=== PATIENT | female | born 1985 | race Caucasian/White ===

== ENCOUNTER 2017-02-21 02:31 | Inpatient (IN) | payer OTHER ==
[2017-02-21] MEDS ORDERED: EPSOM SALT 454 GM TP PRN (02:39)
[2017-02-21] MEDS ORDERED: TERBUTALINE SULFATE 1 MG/ML VIAL IV PRN (02:39)
[2017-02-21] MEDS ORDERED: LR 1,000 ML IV PRN (02:39)
[2017-02-21] MEDS ORDERED: OLIVE OIL 118 ML BTL MISC PRN (02:39)
[2017-02-21] MEDS ORDERED: OXYTOCIN 20 UNIT in LR 1,000 ML IV PRN (02:39)
[2017-02-21] MEDS ORDERED: AMPICILLIN SODIUM 2 GM in NS 100 ML IV ONE (02:44)
[2017-02-21] MEDS ORDERED: PHENYLEPHRINE HCL 100 MCG/ML SYR ONE ×3 (02:45→09:55)
[2017-02-21] MEDS ORDERED: BUPIVACAINE 0.25% 30 ML SDV ONE (02:48)
[2017-02-21] MEDS ORDERED: fentaNYL 2MCG/ML/BUP 0.1% RTU 100 ML BAG EP ONE (02:48)
[2017-02-21] MEDS ORDERED: fentaNYL 100 MCG/2 ML INJ ONE ×2 (02:49→07:56)
[2017-02-21] MEDS ORDERED: AMMONIA AROMATIC 1 EACH AMP IH ONE (02:53)
--- NOTE | 2017-02-21 02:53 | OBPROG ---
Labor Progress Note Assessment/Plan: Assessment:cat 2 fhr labor since 0100 coping well requesting an epidural for pain relief gbs positive exam 8/100/0 bow intact call to physcian occupational therapy aide will be in for delivery patient is a Plan:begin antibiotics epidural for pain relief 02/21/17 02:51 Subjective/Intrapartum Course: 02/21/17 02:50 Doing well. Coping with the contractions. Requesting an epidural for pain relief. Iv fluids begun. Anesthesia called to assist patient with pain relief - SVE Dilation (cm): 8 Effacement (%): 100 Station: -1 Membranes: Intact - Contraction Pattern Assessment Current Contraction Pattern: Regular - FHR Assessment Walters FHR (bpm): 150 FHR Pattern Variability: Moderate FHR Category: 2 - Physical Exam General Appearance: WD/WN, alert, no apparent distress Respiratory: chest non-tender, lungs clear, normal breath sounds Cardiac/Chest: regular rate, rhythm Abdomen: normal bowel sounds Extremities: normal range of motion, Jessica's sign (negative bilataterally) DTR- Lower Extremities: Knee (R): 1+, Knee (L): 1+ (no clonus) Skin: normal color, warm/dry Neuro/Psych: no motor/sensory deficits, alert, normal mood/affect, oriented x 3 ICD10 Worksheet Patient Problems: Problems Problem Status Onset delivery delivered Acute Normal labor Acute
[2017-02-21] MEDS ORDERED: MISOPROSTOL 200 MCG TAB ONE (02:54)
[2017-02-21 02:58] LABS: % IMMATURE GRANULYOCYTES 1.1 % (0.0-1.1); ABSOLUTE IMMATURE GRANULOCYTES 0.18 10^3/uL (0.00-0.10); ADD DIFF? NO; ADD MORPH? NO; ADD SCAN? NO; ATYPICAL LYMPHOCYTE FLAG 10 (0-99); FRAGMENT RBC FLAG 0 (0-99); HEMATOCRIT 38.5 % (38.0-47.0); HEMOGLOBIN 13.4 g/dL (12.6-16.3); LEFT SHIFT FLG 10 (0-99); LIPEMIA HEMOLYSIS FLAG 90 (0-99); MEAN CELL HEMOGLOBIN CONCENTR. 34.8 g/dL (32.4-36.7); MEAN CELL VOLUME 89.1 fL (81.5-99.8); PLATELET CLUMPS FLAG 0 (0-99); PLATELET COUNT 266 10^3/uL (150-400); RED BLOOD CELL COUNT 4.32 10^6/uL (4.18-5.33); RED CELL DISTRIBUTION WIDTH 13.1 % (11.5-15.2)
[2017-02-21] MEDS ORDERED: PHENYLEPHRINE HCL 100 MCG/ML SYR IVP PRN ×2 (03:39→10:33)
[2017-02-21] MEDS ORDERED: ONDANSETRON 4 MG/2 ML VIAL IVP PRN ×2 (03:39→10:33)
[2017-02-21] MEDS ORDERED: NALOXONE HCL 0.4 MG/ML INJ IVP PRN ×2 (03:39→10:33)
--- NOTE | 2017-02-21 03:44 | PREANESOB ---
Obstetric Pre-Anesthesia Info - General Info Proposed Procedure: tolac : 2 Para: 1 DONTE: 02/22/17 Gestational Age: 39 week(s) and 6 day(s) - Info Status: Full Term Monitors: External FHR Pattern: Reassuring - Labor Status Cervical Dilation per last OB SVE: 8 Station per last OB SVE: -1 Indications for Labor Analgesia: Pain Control, Possible Section History: Repeat Indications for Current Section: Elective/Repeat (previous cs due to intol w pushing) Labor Epidural: Proposed Anesthesia ROS: mild hypothyroid Allergies/Adverse Reactions: Allergy/AdvReac Type Severity Reaction Status Date / Time No Known Allergies Allergy Unverified 01/30/14 09:26 Home Medications: Medication Instructions Recorded Vitamins 01/30/14 Hydrocodone/APAP 5/325 [[place] 1 - 2 tab PO Q4 PRN #30 tab 02/04/14 5/325 (*)] Ibuprofen [Motrin (*)] 600 mg PO Q6 PRN #30 tab 02/04/14 Visit Medications: Generic Name Dose Route Start Last Admin Trade Name Freq PRN Reason Stop Dose Admin Lactated Ringer's 1,000 mls @ 0 mls/hr 02/21/17 02:39 Lr IV 08/20/17 02:38 PRN PRN SEE PROTOCOL CONDITIONS Protocol Per Protocol Oxytocin 20 unit/ Lactated 1,002 mls @ 150 mls/hr 02/21/17 02:39 Ringer's IV PRN PRN Post- bleeding Ampicillin Sodium 1 gm/ Sodium 100 mls @ 200 mls/hr 02/21/17 06:45 Chloride IV 03/23/17 06:44 Q4H MEÑO Protocol Ibuprofen 600 mg 02/21/17 02:39 Motrin PO 08/20/17 02:38 Q6HRS PRN post , inflammation Magnesium Sulfate 454 gm 02/21/17 02:39 Epsom Salt TP 08/20/17 02:38 Q1H PRN perineal discomfort Fentress Oil 118 ml 02/21/17 02:39 Sweet Oil MISC 08/20/17 02:38 ONCE PRN perineal massage Terbutaline Sulfate 0.25 mg 02/21/17 02:39 Brethine IV 08/20/17 02:38 ONCE PRN Tachysystole Discontinued Medications Generic Name Dose Route Start Last Admin Trade Name Freq PRN Reason Stop Dose Admin Ammonia (Aromatic Spirit) Confirm 02/21/17 02:53 Ammonia Aromatic Administered 02/21/17 02:54 Dose 1 each IH .STK-MED ONE Bupivacaine HCl Confirm 02/21/17 02:48 Sensorcaine 0.25% Sdv Administered 02/21/17 02:49 Dose 30 ml .ROUTE .STK-MED ONE Fentanyl Confirm 02/21/17 02:49 Sublimaze Administered 02/21/17 02:50 Dose 100 mcg .ROUTE .STK-MED ONE Fentanyl/Bupivacaine HCl Confirm 02/21/17 02:48 Fentanyl/Bupivacaine/Ns 2 Mcg/Ml 0.1% (Premix Administered 02/21/17 02:49 Dose 100 ml EP .STK-MED ONE Ampicillin Sodium 2 gm/ Sodium 110 mls @ 220 mls/hr 02/21/17 02:44 Chloride IV 02/21/17 03:13 ONCE ONE Protocol Misoprostol Confirm 02/21/17 02:54 Cytotec Administered 02/21/17 02:55 Dose 800 mcg .ROUTE .STK-MED ONE Phenylephrine HCl Confirm 02/21/17 02:45 Neosynephrine Administered 02/21/17 02:46 Dose 1,000 mcg .ROUTE .STK-MED ONE Phenylephrine HCl Confirm 02/21/17 02:48 Neosynephrine Administered 02/21/17 02:49 Dose 1,000 mcg .ROUTE .STK-MED ONE - Anesthesia History Response to Local Anesthetics: Normal Anesthesia & Operative History: No Prior Problems (labor epid, cs, dental) Family Anesthesia History: Negative - Social History Substance Use/Abuse: Denies - Vital Signs Height/Weight (Nursing): Height 170.18 cm Weight 78.925 kg - Focused Exam Neck exam: FROM Mallampati Score: Class 2 Mouth exam: normal dental/mouth exam Pulmonary: no respiratory distress Cardiovascular: regular rate and rhythym Labs: 02/21/17 02:42 - Plan Consent Signed and on Chart: Yes Patient/Guardian Understands and Agrees to Plan: Yes Urgent/Emergent Case: Delonte nyasiasunita completed preop but documented later for safe timely pt care (see paper record for info [facility] would not allow)
--- NOTE | 2017-02-21 03:51 | GHP ---
[f rep st] HISTORY AND PHYSICAL DATE OF ADMISSION: 02/21/2017 The patient is a 31-year-old, 2, para 1, with an EDC of 02/22/2017, who comes in at 2:45 with complaints of regular contractions since 1 a.m. on 2016. The patient has been seen routinely through [facility] since 9 weeks and 5 days. Had an early ultrasound that confirmed an DONTE of 02/22/2017. The patient states feeling positive movement. Positive bloody show. Denies rupture of membranes. MEDICAL HISTORY: Positive HPV previously, history of varicella and shingles, positive cystitis with first , increased cholesterol in 2011, hypothyroidism. SURGICAL HISTORY: in 2013. Oral surgery for wisdom teeth at 15 years old. MEDICATIONS: The patient has a history of hypothyroid, is taking levothyroxine , vitamin with DHEA, and folic acid, is on 25 mcg of levothyroxine. ALLERGIES: NKDA, not allergic to any medications. SOCIAL HISTORY: Patient is . Another child at home. Had delivered a male in 01/2014, seven pounds 8 ounces at 40-6/7 weeks, 20 hours of labor, and C -section for intolerance of labor. At that time, was positive GBS. GYNECOLOGICAL HISTORY: History of OCP use. Condom use. A colpo in 2006. Negative Pap since. Infertility CCRM with this . IUI on 05/30/2016. AMH was decreased at 1.9 on 02/25/2016. SIGNIFICANT FAMILY HISTORY: Father of child with cardiac defect. echo was done, which was within normal limits with this . There is also a marginal cord insertion where growth was rechecked. PHYSICAL ASSESSMENT: GENERAL: Patient is awake, alert, oriented x3. LUNGS: Clear bilaterally. ABDOMEN: Bowel sounds are positive in all 4 quadrants. EXTREMITIES: DTRs are 1+ bilaterally. No clonus. Homans sign is negative bilaterally. On exam patient was 8, 100, -1, bag water is intact. The patient is GBS positive. Antibiotics were begun. The patient requested epidural for pain relief. Epidural anesthesia was requested to come for epidural placement. LABS: The patient is A positive, antibody negative. RPR is nonreactive. Rubella is immune. Hepatitis is negative. HIV is negative. Carrier screening in 2014 was negative. TSH on 06/30/2016 was 2.47, on 10/21/2016 was 2.44. Pap was within normal limits. Gonorrhea and chlamydia were negative. The patient declined any genetic screening. One hour GTT was within normal limits. GBS is positive. PLAN OF CARE: 1. GBS treatment. Ampicillin was begun. 2. Epidural at patient's request. 3. Call physician backup, Dr. Ingris Nazario, to come in and be present for delivery. 4. Expectant management of labor. /[id number]/MODL MTDD
[2017-02-21] MEDS ORDERED: LR 500 ML IV SCH (04:00)
[2017-02-21] MEDS ORDERED: fentaNYL 2MCG/ML/BUP 0.1% RTU 100 ML EP SCH (04:00)
--- NOTE | 2017-02-21 05:53 | OBPROG ---
Labor Progress Note Assessment/Plan: Assessment:cat 2 fhr epidural working well feeling pressure denies pain gbs positive exam /0 attempt to push minimal progress variables will labor down Plan:expectant management 02/21/17 02:51 02/21/17 05:51 Subjective/Intrapartum Course: 02/21/17 02:50 Doing well. Coping with the contractions. Requesting an epidural for pain relief. Iv fluids begun. Anesthesia called to assist patient with pain relief Objective: 02/21/17 02:42 Patient ABO/Rh A POSITIVE 02/21/17 02:42 - SVE Membranes: Intact - Contraction Pattern Assessment Current Contraction Pattern: Regular - FHR Assessment Walters FHR (bpm): 135 FHR Pattern Variability: Moderate FHR Category: 1 Oxytocin Orders Assessment - Pre-Induction/Augmentation Assessment Gestational Age: 39 week(s) and 6 day(s) ICD10 Worksheet Patient Problems: Problems Problem Status Onset delivery delivered Acute Normal labor Acute
[2017-02-21] MEDS: AMPICILLIN SODIUM 1 GM in NS 100 ML IV SCH ×2 (06:35→16:56)
--- NOTE | 2017-02-21 06:52 | OBPROG ---
Labor Progress Note Assessment/Plan: Assessment: 31 y/o @ 39 6/7 weeks with previous c/s in active labor Plan: s/p epidural, pt is comfortable FHTs - Cat II strip with intermittent late decels that are getting deeper Pt has labored down x 1 hour and started pushing again with late decels noted Suspect OP; 0 station Discussed proceeding with a c/s secondary to intolerance to labor Pt wants to wait and see if head will come down further so she can start pushing again Will position patient with a peanut Continue to closely monitor strip GBS+, s/p abx x 2 02/21/17 07:01 Subjective/Intrapartum Course: 02/21/17 02:50 Doing well. Coping with the contractions. Requesting an epidural for pain relief. Iv fluids begun. Anesthesia called to assist patient with pain relief 02/21/17 06:59 Pt is comfortable, s/p epidural Objective: 02/21/17 02:42 Patient ABO/Rh A POSITIVE 02/21/17 02:42 - SVE Dilation (cm): 10 Effacement (%): 100 Station: 0, +1 Membranes: AROM (forebag - clear), SROM Amniotic Fluid Color: Clear - Contraction Pattern Assessment Current Contraction Pattern: Regular - FHR Assessment Walters FHR (bpm): 140 FHR Pattern Variability: Moderate FHR Category: 2 (Late decels noted with kel to 90 bpm x 20 sec) Oxytocin Orders Assessment - Pre-Induction/Augmentation Assessment Gestational Age: 39 week(s) and 6 day(s) ICD10 Worksheet Patient Problems: Problems Problem Status Onset delivery delivered Acute Normal labor Acute
[2017-02-21] MEDS ORDERED: OXYTOCIN 10 UNIT/ML VIAL ONE (07:04)
[2017-02-21] MEDS ORDERED: LIDOCAINE 1% 300 MG/30 ML SDV ONE (07:04)
[2017-02-21] MEDS ORDERED: LIDO/EPI 2% **for epidural** 20 ML SDV ONE (07:56)
[2017-02-21] MEDS ORDERED: CEFAZOLIN 2 GM/DEXTROSE/100 ML BAG IV ONE (09:02)
--- NOTE | 2017-02-21 09:08 | OBPROG ---
Labor Progress Note Assessment/Plan: Assessment: Plan: Subjective/Intrapartum Course: 02/21/17 02:50 Doing well. Coping with the contractions. Requesting an epidural for pain relief. Iv fluids begun. Anesthesia called to assist patient with pain relief 02/21/17 06:59 Pt is comfortable, s/p epidural 02/21/17 07:59 patient is comfortable. began pushing then severe variable decels. patient was making good progress so terbutaline given. heart tones improved. we began pushing again. head down to +2 station. increased late decels and decrease variability then more severe variables. discussed options of proceeding to OR and attempting vaccuum. risks and benefits discussed. attempted vaccum - 2 pulls with no popoffs. no further descent of head. will proceed with rltcs for intolerance of labor and arrest of descent. patient consented. Objective: 02/21/17 02:42 Patient ABO/Rh A POSITIVE 02/21/17 02:42 - SVE Dilation (cm): 10 Effacement (%): 100 Station: +1 Membranes: AROM (forebag - clear), SROM Amniotic Fluid Color: Clear - Contraction Pattern Assessment Current Contraction Pattern: Regular - FHR Assessment Walters FHR Pattern Variability: Moderate FHR Category: 2 Oxytocin Orders Assessment - Pre-Induction/Augmentation Assessment Gestational Age: 39 week(s) and 6 day(s) ICD10 Worksheet Patient Problems: Problems Problem Status Onset delivery delivered Acute Normal labor Acute
[2017-02-21] MEDS ORDERED: OXYTOCIN 100 UNITS/10 ML VIAL ONE (09:24)
[2017-02-21] MEDS ORDERED: DEXAMETHASONE 4 MG/ML VIAL ONE (09:24)
[2017-02-21] MEDS ORDERED: ONDANSETRON 4 MG/2 ML VIAL ONE (09:24)
[2017-02-21] MEDS ORDERED: morphINE PF 5 MG/10 ML INJ ONE (09:37)
[2017-02-21] MEDS ORDERED: MEPERIDINE 25 MG/ML SYR ONE (09:53)
[2017-02-21 10:06] LABS: PH VENOUS CORD BLOOD 7.28 (7.20-7.42)
[2017-02-21 10:08] LABS: CORD BLOOD PCO2 42.7 mmHg (37-60); PH ARTERIAL CORD BLOOD 7.29 (7.10-7.37)
[2017-02-21 10:31] LABS: BASE EXCESS CORD -6.3 mEq/L (-13.6--3.2)
[2017-02-21] MEDS ORDERED: METOCLOPRAMIDE 10 MG/2 ML VIAL IVP PRN (10:33)
[2017-02-21] MEDS ORDERED: fentaNYL 100 MCG/2 ML INJ IVP PRN (10:33)
--- NOTE | 2017-02-21 10:41 | POSTANESTH ---
Post Anesthetic Evaluation Cardiovascular Status: Normal, Stable Respiratory Status: Normal, Stable, Similar to Pre-op Cond. Level of Consciousness/Mental Status: Can Participate in Eval, Mildly Sleepy, Arousable (Epidural dosed for C Section, to OR, BP treated, comfortable for surgery, toPACU, no nausea, some post op shoulder pain.) Pain Control: Adequate, Prn Tx Ordered Nausea/Vomiting Control: Adequate, Prn Tx Ordered Complications Possibly Related to Anesthesia: None Noted
[2017-02-21] MEDS ORDERED: SIMETHICONE 80 MG TAB CHEW PO PRN (10:51)
[2017-02-21] MEDS ORDERED: POLYETHYLENE GLYCOL 3350 17 GM PKT PO PRN (10:51)
[2017-02-21] MEDS ORDERED: LACTULOSE 20 GM/30 ML UDCUP PO PRN (10:51)
[2017-02-21] MEDS ORDERED: BISACODYL 10 MG SUPP PR PRN (10:51)
[2017-02-21] MEDS ORDERED: MAGNESIUM HYDROXIDE 30 ML UDCUP PO PRN (10:51)
--- NOTE | 2017-02-21 11:15 | OBDEL ---
Info Type: Repeat Presentation at Delivery: Vertex L&D Analgesia/Anesthesia Type: Epidural GBS+: No Intrapartum Medications: Generic Name Dose Route Start Last Admin Trade Name Jonny PRN Reason Stop Dose Admin Ampicillin Sodium 1 gm/ Sodium 100 mls @ 200 mls/hr 02/21/17 06:45 02/21/17 06:35 Chloride IV 03/23/17 06:44 100 mls Q4H MEÑO Administration Protocol Discontinued Medications Generic Name Dose Route Start Last Admin Trade Name Jonny PRN Reason Stop Dose Admin Ampicillin Sodium 2 gm/ Sodium 110 mls @ 220 mls/hr 02/21/17 02:44 02/21/17 02:51 Chloride IV 02/21/17 03:13 110 mls ONCE ONE Administration Protocol terbutaline x 2 - Hospital Course Intrapartum: 02/21/17 02:50 Doing well. Coping with the contractions. Requesting an epidural for pain relief. Iv fluids begun. Anesthesia called to assist patient with pain relief 02/21/17 06:59 Pt is comfortable, s/p epidural 02/21/17 07:59 patient is comfortable. began pushing then severe variable decels. patient was making good progress so terbutaline given. heart tones improved. we began pushing again. head down to +2 station. increased late decels and decrease variability then more severe variables. discussed options of proceeding to OR and attempting vaccuum. risks and benefits discussed. attempted vaccum - 2 pulls with no popoffs. no further descent of head. will proceed with rltcs for intolerance of labor and arrest of descent. patient consented. Indications for Delivery: Spontaneous Labor Vaginal Delivery - Labor and Delivery Onset of Contractions Date: 02/21/17 Onset of Contractions Time: 01:00 Amniotic Fluid Color: Clear Cord Gases: Cord Gases Cord Blood PCO2 42.7 mmHg (37-60) 02/21/17 09:40 Cord Base Excess -6.3 mEq/L (-13.6--3.2) 02/21/17 09:40 Cord ABG pH 7.29 (7.10-7.37) 02/21/17 09:40 Cord VBG pH 7.28 (7.20-7.42) 02/21/17 09:40 Operative Report - Delivery Pre-op Diagnoses: IUP at 40 weeks, arrest of descent, failed vaccuum, intolerance of labor Post-op Diagnoses: same as preop plus occiput posterior History of Prior Section: Yes Number of Prior Sections: 1 Nulliparous Prior to Delivery: No Indications for Prior Section: Non-reas. Status Indications for Current Section: Elective/Repeat (previous cs due to intol w pushing) Procedure: Unscheduled, Low Transverse Surgeon: Annette Toledo Dog Races Manager: Celia Bello Anesthesiologist: Rinku Saleh EBL: 800 Cord Gases: Cord Gases Cord Blood PCO2 42.7 mmHg (37-60) 02/21/17 09:40 Cord Base Excess -6.3 mEq/L (-13.6--3.2) 02/21/17 09:40 Cord ABG pH 7.29 (7.10-7.37) 02/21/17 09:40 Cord VBG pH 7.28 (7.20-7.42) 02/21/17 09:40 [place]arr[place] Data Walters Delivery Date: 02/21/17 Delivery Time: 09:36 DONTE: 02/21/17 Gestational Age: 40 week(s) and 0 day(s) Sex of : Male Score (1 Min): 8 Score (5 Min): 9 ICD10 Worksheet Patient Problems: Problems Problem Status Onset delivery delivered Acute Normal labor Acute
[2017-02-21] MEDS: KETOROLAC 30 MG/1 ML SDV IVP SCH ×2 (13:26→19:30)
[2017-02-21] MEDS ORDERED: ACETAMINOPHEN 500 MG TAB PO ONE (15:45)
--- NOTE | 2017-02-21 18:16 | OBPP ---
Progress Note Assessment/Plan: Assessment: pod# 0 s/p RLTCS after failed vacuum failed breast feeding slightly elevated temperature Plan: routine post care watch temperature - abx if greater than 100.5 02/21/17 18:06 Subjective/ Course: 02/21/17 18:07 patient is doing very well. pain is well controlled. breast feeding is going well. denies headache and changes in vision. ambulating in room. passing gas. tolerating diet. has had two elevated temps (100.7 then 100.3 and 99.7 ) will monitor temp. discussed delivery. questions answered. Objective: 02/21/17 02:42 Patient ABO/Rh A POSITIVE 02/21/17 02:42 Temp Pulse Resp BP Pulse Ox 37.6 C 92 16 111/69 97 02/21/17 17:30 02/21/17 15:21 02/21/17 15:21 02/21/17 15:21 02/21/17 17:30 Physical Exam - Physical Exam Neck: non-tender, full range of motion, supple Respiratory: chest non-tender, lungs clear, normal breath sounds Cardiac/Chest: normal peripheral pulses, regular rate, rhythm Abdomen: normal bowel sounds, non-tender Extremities: normal range of motion, non-tender, normal inspection, normal capillary refill Skin: normal color, warm/dry Neuro/Psych: no motor/sensory deficits, alert, normal mood/affect, oriented x 3
[2017-02-21] MEDS: SENNOSIDES/DOCUSATE SODIUM TAB PO SCH (19:56)
--- NOTE | 2017-02-21 20:51 | GOP ---
[f rep st] OPERATIVE REPORT DATE OF OPERATION: 02/21/2017 SURGEON: Annette Toledo DO SUPREME COURT JUSTICE: AJITH Cevallos. ANESTHESIA: Epidural. ANESTHESIOLOGIST: Rinku Saleh MD. PREOPERATIVE DIAGNOSIS: 1. Intrauterine at 40 weeks' gestation. 2. History of previous low transverse section. 3. Failed vacuum assisted vaginal delivery. 4. Arrest of descent. 5. intolerance of labor. POSTOPERATIVE DIAGNOSIS: 1. Intrauterine at 40 weeks' gestation. 2. History of previous low transverse section. 3. Failed vacuum assisted vaginal delivery. 4. Arrest of descent. 5. intolerance of labor. 6. Occiput posterior. PROCEDURE PERFORMED: Repeat low transverse section. FINDINGS: Viable male in the occiput posterior presentation, delivered at 9:36 a.m. Apgars w ere 8 and 9. Cord blood ABG 7.29. Cord blood venous is 7.28. ESTIMATED BLOOD LOSS: 800 cc. INDICATIONS: Patient is a 31-year-old, 2, para 1, with an estimated due date of 02/22/2017, who presented to Labor and Delivery with regular contractions since 1:00 a.m. She arrived to Labor a nd Delivery and was found to be 8 cm dilated, 100% effaced and -1 station. Patient is GBS positive. She received antibiotics. She received an epidural which provided adequate pain relief. The patien t had intermittent periods of decelerations while in labor, but overall status was reassuring. She progressed to complete dilation and overall status was reassuring, but there were some lat e decelerations. She was allowed to labor down. We did begin pushing and she had some severe variab le decelerations. She was given terbutaline, which caused the baby's status to become reassuri ng again. But we then began pushing again, she was able to bring the baby down to +2 station and the baby began having decelerations again. We had a long discussion about management options of attempt ing a vacuum assisted vaginal delivery versus proceeding with a repeat section. The patient was agreeable to trying the vacuum assisted vaginal delivery. With 2 contractions and 0 pop offs, t he baby's head did get good application of the vacuum. The baby's head did not descend further and d ecelerations were worsening, so decision was made to proceed with a repeat low transverse se ction for intolerance of labor, arrest of descent. Risks and benefits extensively reviewed wit h the patient and the was properly consented. DESCRIPTION OF PROCEDURE: Patient was taken to the operating room with intravenous fluids in place. She was given 2 g of Ancef intravenously. An epidural was already in place. A Bernal catheter was a lready in place. Venodynes were placed on her lower extremities. She was then prepped and draped in the normal sterile fashion. Anesthesia was assessed and found to be adequate. A Pfannenstiel skin incision was then made 2 fingerbreadths above the pubic symphysis. The incision was then carried thr ough to the underlying layer of fascia with the Bovie. The fascia was then nicked in the midline. T he fascial incision was extended laterally. The superior aspect of the fascial incision was then gra sped with Randee's, tented up and the underlying rectus muscle dissected off bluntly and with the Bov ie. Attention was then turned to the inferior aspect of the fascial incision which in a similar fash ion was grasped with the Randee's, tented up, and the underlying rectus muscle dissected off bluntly with the Bovie. The rectus muscle was then in the midline. The peritoneum was identified, tented up, and entered sharply with the Metzenbaum scissors. The incision was extended superiorly a nd inferiorly with excellent visualization of the bladder. The bladder blade was then inserted. The vesicouterine peritoneum was then identified, tented up, and entered sharply with the Metzenbaum sci ssors. The incision was extended laterally and the bladder flap was created digitally. The bladder blade was then reinserted. The uterus was then incised in a low transverse fashion with the scalpel. The uterine incision was extended laterally. The head was noted to be very low within the pelvis i n the occiput posterior presentation. The infant's head was then delivered through the incision, and the remainder of the viable male infant was then delivered without difficulty. Cord clamping was de layed for 1 minute after baby was stimulated and dried over the field. Cord was clamped x2 and cut, and cord gases were obtained and the was handed off to awaiting nurse practitioner. Intact placenta with 3-vessel cord delivered without difficulty. The uterus was then exteriorized an d cleared of all clots and debris and wrapped in a moist laparotomy sponge. The bladder blade was th en reinserted. Ovaries, uterus, and tubes were unremarkable. The uterine incision was then closed w ith 0 Vicryl in a running locked fashion. A 2nd 0 Vicryl stitch was used to imbricate the uterine in cision. Hemostasis was assured. The uterus was then returned to the patient's abdomen. Gutters wer e cleared of all clots and debris. The hysterotomy remained hemostatic. Peritoneum was reapproximat ed with 3-0 Vicryl in a running fashion. Rectus muscle was reapproximated with 2-0 Vicryl in a runni ng fashion. Fascia was closed with 0 Vicryl in a running fashion. Zelda's tissue was closed with 2 -0 Vicryl in a running fashion. The skin was then closed with linus. Sponge, lap, and needle coun t correct x2. Patient was transported to recovery room in stable condition. /[id number]/MODL
[2017-02-22] MEDS: KETOROLAC 30 MG/1 ML SDV IVP SCH ×2 (03:33→06:24)
[2017-02-22] MEDS: SENNOSIDES/DOCUSATE SODIUM TAB PO SCH ×2 (08:07→21:10)
[2017-02-22] MEDS: LEVOTHYROXINE 25 MCG TAB PO SCH (08:08)
[2017-02-22] MEDS: HYDROCODONE/APAP 5/325 TAB PO PRN ×4 (08:10→21:10)
--- NOTE | 2017-02-22 08:12 | OBPP ---
Progress Note Assessment/Plan: Assessment: 31 yo POD#1 s/p RCD doing well. Plan: Routine post-op/ care. Encourage ambulation, shower, de-line, advance diet and activity. 02/22/17 08:08 Subjective/ Course: 02/21/17 18:07 patient is doing very well. pain is well controlled. breast feeding is going well. denies headache and changes in vision. ambulating in room. passing gas. tolerating diet. has had two elevated temps (100.7 then 100.3 and 99.7 ) will monitor temp. discussed delivery. questions answered. 02/22/17 08:10 Patient is resting comfortably in bed. She is ambulating. Bernal anchored. Passing flatus. Pain controlled with IV meds. Tolerating PO intake. Minimal lochia. . Objective: 02/22/17 03:40 Patient ABO/Rh A POSITIVE 02/21/17 02:42 Temp Pulse Resp BP Pulse Ox 36.9 C 94 16 89/54 L 94 02/22/17 03:46 02/22/17 05:59 02/22/17 05:59 02/22/17 03:46 02/22/17 05:59 VSS NAD Atrumatic, normocephalic Lungs clear in all [place] Heart RRR Abdomen soft, appropriately tender, incision is clean/dry/intact Fundus firm Extremities: No excessive edema Hct: 38.5 (pre-op) --> 33.6 (post-op day#1) Uterine Position/Fundal Height: Umbilicus -2, Midline Uterine Tone: Firm
[2017-02-22] MEDS ORDERED: KETOROLAC 30 MG/1 ML SDV IVP ONE (09:30)
[2017-02-22] MEDS: IBUPROFEN 600 MG TAB PO PRN ×2 (15:20→21:11)
[2017-02-22] MEDS: DOCUSATE SODIUM 100 MG CAP PO PRN (21:10)
[2017-02-23] MEDS: IBUPROFEN 600 MG TAB PO PRN ×4 (03:37→23:04)
[2017-02-23] MEDS: HYDROCODONE/APAP 5/325 TAB PO PRN ×6 (03:38→23:46)
[2017-02-23] MEDS: SENNOSIDES/DOCUSATE SODIUM TAB PO SCH ×2 (08:49→20:05)
[2017-02-23] MEDS: LEVOTHYROXINE 25 MCG TAB PO SCH (10:17)
--- NOTE | 2017-02-23 10:20 | OBPP ---
Progress Note Assessment/Plan: Assessment: 31 y/o POD #2 s/p Rpt LTCS doing well. Plan: Bowel protocol today, ambulate with assistance. APNO cream prn and support. 02/23/17 10:20 Subjective/ Course: 02/21/17 18:07 patient is doing very well. pain is well controlled. breast feeding is going well. denies headache and changes in vision. ambulating in room. passing gas. tolerating diet. has had two elevated temps (100.7 then 100.3 and 99.7 ) will monitor temp. discussed delivery. questions answered. 02/22/17 08:10 Patient is resting comfortably in bed. She is ambulating. Bernal anchored. Passing flatus. Pain controlled with IV meds. Tolerating PO intake. Minimal lochia. . 02/23/17 10:12 Patient is doing well today. She has good pain control with PO meds. She is ambulating, voiding without difficulty and has min lochia. She has had flatus, but no BM yet and has some gas pain. Breast feeding is going well, but she has some sore nipples. Objective: 02/22/17 03:40 Patient ABO/Rh A POSITIVE 02/21/17 02:42 Temp Pulse Resp BP Pulse Ox 36.6 C 94 18 100/62 95 02/22/17 19:56 02/22/17 19:56 02/22/17 19:56 02/22/17 19:56 02/22/17 19:56 Uterine Position/Fundal Height: Umbilicus -2 Uterine Tone: Firm Physical Exam - Physical Exam Neck: non-tender, full range of motion, supple Respiratory: chest non-tender, lungs clear, normal breath sounds Cardiac/Chest: regular rate, rhythm Abdomen: normal bowel sounds, incision (c/d/i) Extremities: swelling (tr ), Jessica's sign (neg)
[2017-02-23] MEDS: DOCUSATE SODIUM 100 MG CAP PO PRN (20:10)
[2017-02-23 20:35] VITALS: RESP 16
[2017-02-24] MEDS: HYDROCODONE/APAP 5/325 TAB PO PRN ×4 (03:39→21:32)
[2017-02-24] MEDS: IBUPROFEN 600 MG TAB PO PRN ×4 (05:05→23:32)
[2017-02-24] MEDS: SENNOSIDES/DOCUSATE SODIUM TAB PO SCH ×2 (08:22→19:43)
--- NOTE | 2017-02-24 14:09 | OBPP ---
Progress Note Assessment/Plan: Assessment: 31yo s/p repeat c/s POD#3 constipation urinary retention Plan: routine post op care support PRN bowel regimen d/c alfaro @ 24hrs, bladder scan PRN plan to d/c home tomorrow 02/24/17 14:05 Subjective/ Course: 02/21/17 18:07 patient is doing very well. pain is well controlled. breast feeding is going well. denies headache and changes in vision. ambulating in room. passing gas. tolerating diet. has had two elevated temps (100.7 then 100.3 and 99.7 ) will monitor temp. discussed delivery. questions answered. 02/22/17 08:10 Patient is resting comfortably in bed. She is ambulating. Alfaro anchored. Passing flatus. Pain controlled with IV meds. Tolerating PO intake. Minimal lochia. . 02/23/17 10:12 Patient is doing well today. She has good pain control with PO meds. She is ambulating, voiding without difficulty and has min lochia. She has had flatus, but no BM yet and has some gas pain. Breast feeding is going well, but she has some sore nipples. 02/24/17 14:09 Pt doing well, reports constipation. She denies any incision pain. She denies any CP, SOB, HUNTER, visual changes. She is ambulating without difficulty. She is . She still has alfaro in place, draining to gravity. Objective: 02/22/17 03:40 Patient ABO/Rh A POSITIVE 02/21/17 02:42 Temp Pulse Resp BP Pulse Ox 36.6 C 68 16 117/74 95 02/24/17 08:41 02/24/17 08:41 02/24/17 08:41 02/24/17 08:41 02/23/17 20:00 Uterine Position/Fundal Height: Umbilicus -1, Midline Uterine Tone: Firm Physical Exam - Physical Exam EENT: PERRL/EOMI Neck: supple Respiratory: chest non-tender, lungs clear, normal breath sounds Cardiac/Chest: regular rate, rhythm Abdomen: non-tender, soft, incision (healing well, steri-strips/linus intact) Extremities: pedal edema Skin: normal color, warm/dry Neuro/Psych: no motor/sensory deficits, alert, normal mood/affect, oriented x 3
[2017-02-24] MEDS ORDERED: LIDOCAINE 2% JELLY 5 ML TUBE TP ONE (19:30)
[2017-02-24] MEDS: DOCUSATE SODIUM 100 MG CAP PO PRN (19:43)
[2017-02-25] MEDS: IBUPROFEN 600 MG TAB PO PRN ×2 (05:30→11:24)
[2017-02-25] MEDS: SENNOSIDES/DOCUSATE SODIUM TAB PO SCH (09:51)
[2017-02-25 10:05] VITALS: BP 117/72; PULSE 76; TEMP 97.6; O2SAT 95
--- NOTE | 2017-02-25 11:42 | OBGCSDC ---
General Delivery Information - General Info : 2 Para: 2 Abortions: 0 Type: Repeat L&D Analgesia/Anesthesia Type: Epidural Admission Date: 02/21/17 Labs: Patient ABO/Rh A POSITIVE 02/21/17 02:42 Hct 33.6 % (38.0-47.0) L 02/22/17 03:40 - Hospital Course Intrapartum: 02/21/17 02:50 Doing well. Coping with the contractions. Requesting an epidural for pain relief. Iv fluids begun. Anesthesia called to assist patient with pain relief 02/21/17 06:59 Pt is comfortable, s/p epidural 02/21/17 07:59 patient is comfortable. began pushing then severe variable decels. patient was making good progress so terbutaline given. heart tones improved. we began pushing again. head down to +2 station. increased late decels and decrease variability then more severe variables. discussed options of proceeding to OR and attempting vaccuum. risks and benefits discussed. attempted vaccum - 2 pulls with no popoffs. no further descent of head. will proceed with rltcs for intolerance of labor and arrest of descent. patient consented. : 02/21/17 18:07 patient is doing very well. pain is well controlled. breast feeding is going well. denies headache and changes in vision. ambulating in room. passing gas. tolerating diet. has had two elevated temps (100.7 then 100.3 and 99.7 ) will monitor temp. discussed delivery. questions answered. 02/22/17 08:10 Patient is resting comfortably in bed. She is ambulating. Alfaro anchored. Passing flatus. Pain controlled with IV meds. Tolerating PO intake. Minimal lochia. . 02/23/17 10:12 Patient is doing well today. She has good pain control with PO meds. She is ambulating, voiding without difficulty and has min lochia. She has had flatus, but no BM yet and has some gas pain. Breast feeding is going well, but she has some sore nipples. 02/24/17 14:09 Pt doing well, reports constipation. She denies any incision pain. She denies any CP, SOB, HUNTER, visual changes. She is ambulating without difficulty. She is . She still has alfaro in place, draining to gravity. 02/25/17 11:32 Pt is doing better today and feels ready to d/c home. She was impacted yesterday and was able to have a large BM after an enema. She felt immediately better but is anxious about that happening again. She is also frustrated about the urinary retention and the fact she still has to have the catheter. Her incisional pain is well controlled with Ibuprofen and she is trying to avoid narcotics because of the constipation. Nursing is going well and baby is doing well. O: WD/WN W female NAD Chest: CTA B CV: RRR no murmur Abd: soft, ND nml BS UFF U-2 incision c/d/i Ext: no edema, neg Jessica's A/P: 31 y/o POD #4 s/p LTCS with urinary retention 1. D/c home today with alfaro in place. Will give Keflex 1 tab po QD to prevent UTI. RTO Monday for bladder trial 2. Rx [place] and Ibuprofen and we extensively review bowel regimen and options to avoid constipation Vaginal - Diagnosis Amniotic Fluid Color: Clear - Delivery Providers Surgeon: Annette Toledo Plate Fitter: Celia Bello Anesthesiologist: Rinku Saleh - Delivery Number of Prior Sections: 1 Indications for Current Section: Elective/Repeat (previous cs due to intol w pushing) Surgical Procedures: Unscheduled, Low Transverse EBL: 800 [address] [place] Delivery Date: 02/21/17 Delivery Time: 09:26 DONTE: 02/22/17 Gestational Age: 40 week(s) and 3 day(s) Sex of : Male Weight (gm): 3350 kg Score (1 Min): 8 Score (5 Min): 8 Score (10 Min): 8 Discharge Information - Discharge Information Prescriptions: Hydrocodone/APAP 5/325 [[place] 5/325 (*)] 1 - 2 tab PO Q4HRS PRN #20 tab PRN Reason: Pain, Moderate Ibuprofen [Motrin (*)] 600 mg PO Q6HRS PRN #30 tab PRN Reason: post , inflammation Condition: Good Instruction/Follow Up: See Instruction Sheet (Monday), Two Weeks, Four Weeks, Six Weeks
[2017-02-25] MEDS ORDERED: CEPHALEXIN 500 MG CAP PO SCH (12:00)
== END 2017-02-25 12:00 | disposition home or self-care (01) | DRG 766 ==
LOC: FLD 02:31 → FOB 12:17
PROVIDERS: ADMIT Obstetrics & Gynecology; ATTEND Obstetrics & Gynecology
DX: O66.41 Failed attempted vaginal birth after previous cesarean delivery (principal); O64.0XX0 Obstructed labor due to incomplete rotation of fetal head, not applicable or unspecified; O76 Abnormality in fetal heart rate and rhythm complicating labor and delivery; O66.5 Attempted application of vacuum extractor and forceps; R33.9 Retention of urine, unspecified; O99.62 Diseases of the digestive system complicating childbirth; K59.00 Constipation, unspecified; O99.820 Streptococcus B carrier state complicating pregnancy; O48.0 Post-term pregnancy; O99.284 Endocrine, nutritional and metabolic diseases complicating childbirth; E03.9 Hypothyroidism, unspecified; Z3A.40 40 weeks gestation of pregnancy; Z37.0 Single live birth
CPT/HCPCS: J0290; J0690; J1100; J1885; J2274; J2370; J2405; J2590; J3010; J3105

== ENCOUNTER → 2017-03-07 | Outpatient (CLI) | payer OTHER | LOC: FLACT 13:33 | PROVIDERS: ATTEND Obstetrics & Gynecology | DX: O92.79 Other disorders of lactation (principal) | CPT/HCPCS: G0463 ==